=== PATIENT | male | born 1950 | race Caucasian/White ===

== ENCOUNTER 2017-10-14 22:02 | Inpatient (IN) | payer MEDICARE, OTHER ==
[~2017-10-14] VITALS: Ht 180.3 cm; Wt 100.3 kg
[2017-10-14] MEDS ORDERED: SODIUM CHLORIDE FLUSH 10ML SYR IVF ONE (23:00)
[2017-10-14] MEDS ORDERED: OMNIPAQUE 350 MG/ML, 100ML BOTTLE ONE (23:00)
[2017-10-14 23:23] LABS: BASOPHILS # (AUTO) 0.05 x10^3/uL (0-0.1); BASOPHILS % (AUTO) 0 % (0-1); EOSINOPHILS % (AUTO) 1 % (1-7); LYMPHOCYTES # (AUTO) 2.15 x10^3/uL (1-3.4); LYMPHOCYTES % (AUTO) 15 % (22-44); MD NO; MEAN CORPUSCULAR HEMOGLOBIN 32.6 pg (27.5-34.5); MEAN CORPUSCULAR VOLUME 95.9 fL (81-97); MEAN PLATELET VOLUME 7.5 fL (7.4-10.4); MONOCYTES # (AUTO) 1.03 x10^3/uL (0.2-0.8); MONOCYTES % (AUTO) 7 % (2-9); NEUTROPHILS # (AUTO) 11.16 x10^3/uL (1.8-6.8); NEUTROPHILS % (AUTO) 77 % (42-75); PLATELET COUNT 372 x10^3/uL (130-400); RED BLOOD COUNT 4.68 x10^6/uL (4.38-5.82); RED CELL DISTRIBUTION WIDTH 12.6 % (9.4-14.8)
[2017-10-14 23:34] LABS: ALANINE AMINOTRANSFERASE 34 U/L (12-78); ALBUMIN 3.5 g/dL (3.4-5.0); ANION GAP 8 mmol/L (5-15); CALCIUM 9.3 mg/dL (8.5-10.1); CHLORIDE 102 mmol/L (98-107); CREATININE 1.27 mg/dL (0.7-1.3)
[2017-10-14 23:36] LABS: ALKALINE PHOSPHATASE 99 U/L (45-117); BILIRUBIN,TOTAL 0.7 mg/dL (0.2-1.0); TOTAL PROTEIN 8.5 g/dL (6.4-8.2)
[2017-10-15 00:15] LABS: CULTURE INDICATED? NO; MICROSCOPIC AUTO
[2017-10-15] MEDS ORDERED: SODIUM CHLORIDE FLUSH 10ML SYR IVF ONE (00:30)
[2017-10-15] MEDS ORDERED: PIPERACILLIN/TAZO/PMX 3.375GM 50 ML IVPB ONE (00:30)
[2017-10-15] MEDS ORDERED: SODIUM CHLORIDE 0.9% 1,000ML IVBOLUS ONE (00:30)
[2017-10-15 00:47] LABS: CLOSTRIDIUM DIFFICILE ANTIGEN NEGATIVE; CLOSTRIDIUM DIFFICILE TOXIN NEGATIVE (Negative)
[2017-10-15] MEDS ORDERED: PIPERACILLIN/TAZO/PMX 3.375GM 50 ML ONE (00:59)
[2017-10-15 04:13] VITALS: BP 131/75
[2017-10-15] MEDS ORDERED: ACETAMINOPHEN 325 MG TABLET PO PRN (06:00)
[2017-10-15] MEDS ORDERED: ONDANSETRON 2MG/ML, 2ML IVPush PRN (06:00)
[2017-10-15] MEDS ORDERED: CEFOTETAN PMX 1GM/50ML 50 ML IV SCH (06:00)
[2017-10-15] MEDS: NS + 20MEQ KCL 1,000 ML IV SCH ×2 (06:10→15:23)
[2017-10-15] MEDS: morphine SULFATE 10 MG/ML, 1ML IVPush PRN ×5 (06:22→23:53)
[2017-10-15] MEDS: METRONIDAZOLE PMX 500MG/100ML 100 ML IV SCH ×3 (06:56→23:45)
[2017-10-15 07:11] VITALS: BP 121/77
[2017-10-15] MEDS: FAMOTIDINE 20 MG TABLET PO SCH ×2 (08:30→21:08)
[2017-10-15] MEDS ORDERED: DEXTROSE 5% IVPB SCH (11:00)
[2017-10-15] MEDS ORDERED: CEFOTETAN IVPB SCH (11:00)
[2017-10-15 12:25] VITALS: BP 128/81
[2017-10-15 20:30] VITALS: BP 123/76
[2017-10-15] MEDS: CEFOTETAN 2 GM in DEXTROSE 5% 50 ML IVPB SCH (22:39)
[2017-10-16 03:18] VITALS: BP 127/73
[2017-10-16 05:06] LABS: BASOPHILS # (AUTO) 0.02 x10^3/uL (0-0.1); BASOPHILS % (AUTO) 0 % (0-1); EOSINOPHILS # (AUTO) 0.36 x10^3/uL (0-0.4); EOSINOPHILS % (AUTO) 3 % (1-7); LYMPHOCYTES # (AUTO) 2.21 x10^3/uL (1-3.4); LYMPHOCYTES % (AUTO) 21 % (22-44); MD NO; MEAN CORPUSCULAR HEMOGLOBIN 32.7 pg (27.5-34.5); MEAN CORPUSCULAR HGB CONC 34.2 g/dL (33.2-36.2); MEAN CORPUSCULAR VOLUME 95.6 fL (81-97); MEAN PLATELET VOLUME 7.7 fL (7.4-10.4); MONOCYTES # (AUTO) 0.91 x10^3/uL (0.2-0.8); MONOCYTES % (AUTO) 9 % (2-9); NEUTROPHILS # (AUTO) 7.11 x10^3/uL (1.8-6.8); NEUTROPHILS % (AUTO) 67 % (42-75); PLATELET COUNT 300 x10^3/uL (130-400); RED BLOOD COUNT 4.26 x10^6/uL (4.38-5.82); RED CELL DISTRIBUTION WIDTH 12.9 % (9.4-14.8)
[2017-10-16 05:18] LABS: CHLORIDE 108 mmol/L (98-107)
[2017-10-16 05:36] LABS: ANION GAP 10 mmol/L (5-15); CREATININE 1.32 mg/dL (0.7-1.3)
[2017-10-16] MEDS: FAMOTIDINE 20 MG TABLET PO SCH ×2 (07:48→20:43)
[2017-10-16] MEDS: METRONIDAZOLE PMX 500MG/100ML 100 ML IV SCH ×2 (07:48→16:00)
[2017-10-16] MEDS: morphine SULFATE 10 MG/ML, 1ML IVPush PRN ×3 (07:54→22:21)
[2017-10-16 09:04] VITALS: BP 105/58
[2017-10-16] MEDS: CEFOTETAN 2 GM in DEXTROSE 5% 50 ML IVPB SCH ×2 (11:37→23:21)
[2017-10-16 13:56] VITALS: BP 135/73
[2017-10-16 21:58] VITALS: BP 138/78
[2017-10-17] MEDS: METRONIDAZOLE PMX 500MG/100ML 100 ML IV SCH ×3 (00:33→16:50)
[2017-10-17 03:36] VITALS: BP 121/76
[2017-10-17 05:55] LABS: BASOPHILS # (AUTO) 0.03 x10^3/uL (0-0.1); BASOPHILS % (AUTO) 0 % (0-1); EOSINOPHILS # (AUTO) 0.36 x10^3/uL (0-0.4); EOSINOPHILS % (AUTO) 4 % (1-7); LYMPHOCYTES # (AUTO) 1.86 x10^3/uL (1-3.4); LYMPHOCYTES % (AUTO) 19 % (22-44); MD NO; MEAN CORPUSCULAR HEMOGLOBIN 32.7 pg (27.5-34.5); MEAN CORPUSCULAR HGB CONC 34.3 g/dL (33.2-36.2); MEAN CORPUSCULAR VOLUME 95.2 fL (81-97); MEAN PLATELET VOLUME 7.4 fL (7.4-10.4); MONOCYTES # (AUTO) 0.95 x10^3/uL (0.2-0.8); MONOCYTES % (AUTO) 10 % (2-9); NEUTROPHILS % (AUTO) 67 % (42-75); PLATELET COUNT 304 x10^3/uL (130-400); RED BLOOD COUNT 4.13 x10^6/uL (4.38-5.82); RED CELL DISTRIBUTION WIDTH 12.5 % (9.4-14.8)
[2017-10-17 06:11] LABS: ANION GAP 8 mmol/L (5-15); CHLORIDE 105 mmol/L (98-107)
[2017-10-17 06:13] LABS: CREATININE 1.33 mg/dL (0.7-1.3)
[2017-10-17 07:59] VITALS: BP 119/74
[2017-10-17] MEDS: FAMOTIDINE 20 MG TABLET PO SCH ×2 (08:21→22:52)
[2017-10-17] MEDS: morphine SULFATE 10 MG/ML, 1ML IVPush PRN (08:21)
[2017-10-17] MEDS: CEFOTETAN 2 GM in DEXTROSE 5% 50 ML IVPB SCH ×2 (11:44→23:56)
[2017-10-17 12:50] VITALS: BP 131/81
[2017-10-17] MEDS ORDERED: OXYcodone IR 5MG TABLET ONE (13:32)
[2017-10-17] MEDS ORDERED: OXYcodone 5 MG/5 ML ORAL.SOL UDC ONE (13:40)
[2017-10-17] MEDS: OXYcodone 5 MG/5 ML ORAL.SOL UDC PO PRN ×3 (13:48→22:51)
[2017-10-17 20:00] VITALS: BP 122/82
[2017-10-18] MEDS: METRONIDAZOLE PMX 500MG/100ML 100 ML IV SCH ×3 (00:59→16:28)
[2017-10-18 02:00] VITALS: BP 156/96
[2017-10-18] MEDS: morphine SULFATE 10 MG/ML, 1ML IVPush PRN ×2 (02:33→08:57)
[2017-10-18 06:45] VITALS: BP 114/74
[2017-10-18] MEDS: FAMOTIDINE 20 MG TABLET PO SCH ×2 (08:48→22:20)
[2017-10-18] MEDS ORDERED: morphine SULFATE 10 MG/ML, 1ML IVPush PRN (11:00)
[2017-10-18] MEDS: CEFOTETAN 2 GM in DEXTROSE 5% 50 ML IVPB SCH (11:51)
[2017-10-18] MEDS ORDERED: MORPHINE SULFATE 4 MG/ML, 1ML IVPush PRN (12:00)
[2017-10-18] MEDS ORDERED: KETOROLAC 30 MG/1 ML IVPush PRN (12:00)
[2017-10-18 16:33] VITALS: BP 118/76
[2017-10-18 19:54] VITALS: BP 112/80
[2017-10-18] MEDS: CEFOTETAN PMX 2GM/50ML 50 ML IVPB SCH (23:35)
[2017-10-19] MEDS: METRONIDAZOLE PMX 500MG/100ML 100 ML IV SCH ×3 (01:21→17:10)
[2017-10-19 01:24] VITALS: BP 125/71
[2017-10-19 05:50] LABS: BASOPHILS # (AUTO) 0.03 x10^3/uL (0-0.1); BASOPHILS % (AUTO) 0 % (0-1); EOSINOPHILS # (AUTO) 0.43 x10^3/uL (0-0.4); EOSINOPHILS % (AUTO) 5 % (1-7); LYMPHOCYTES # (AUTO) 1.77 x10^3/uL (1-3.4); LYMPHOCYTES % (AUTO) 20 % (22-44); MD NO; MEAN CORPUSCULAR HEMOGLOBIN 32.3 pg (27.5-34.5); MEAN CORPUSCULAR HGB CONC 33.9 g/dL (33.2-36.2); MEAN CORPUSCULAR VOLUME 95.3 fL (81-97); MEAN PLATELET VOLUME 7.5 fL (7.4-10.4); MONOCYTES # (AUTO) 0.83 x10^3/uL (0.2-0.8); MONOCYTES % (AUTO) 10 % (2-9); NEUTROPHILS # (AUTO) 5.63 x10^3/uL (1.8-6.8); NEUTROPHILS % (AUTO) 65 % (42-75); PLATELET COUNT 334 x10^3/uL (130-400); RED BLOOD COUNT 4.12 x10^6/uL (4.38-5.82); RED CELL DISTRIBUTION WIDTH 12.7 % (9.4-14.8)
[2017-10-19 06:09] LABS: CHLORIDE 105 mmol/L (98-107)
[2017-10-19 07:04] VITALS: BP 128/81
[2017-10-19 07:14] LABS: CALCIUM 8.8 mg/dL (8.5-10.1); CREATININE 1.41 mg/dL (0.7-1.3)
[2017-10-19 07:53] LABS: ANION GAP 6 mmol/L (5-15)
[2017-10-19] MEDS: FAMOTIDINE 20 MG TABLET PO SCH ×2 (09:01→20:33)
[2017-10-19] MEDS ORDERED: OXYcodone IR 5MG TABLET PO PRN (09:30)
[2017-10-19] MEDS: CEFOTETAN PMX 2GM/50ML 50 ML IVPB SCH ×2 (11:02→23:09)
[2017-10-19] MEDS: POTASSIUM CHLORIDE 20 MEQ in SODIUM CHLORIDE 0.45% 1,000 ML IV SCH ×2 (11:03→23:09)
[2017-10-19 13:28] VITALS: BP 120/74
[2017-10-19 20:28] VITALS: BP 128/77
[2017-10-20] MEDS: METRONIDAZOLE PMX 500MG/100ML 100 ML IV SCH (01:33)
[2017-10-20 02:03] VITALS: BP 140/74
[2017-10-20 05:23] LABS: ANION GAP 7 mmol/L (5-15); CALCIUM 8.8 mg/dL (8.5-10.1); CHLORIDE 107 mmol/L (98-107)
[2017-10-20 05:24] LABS: CREATININE 1.25 mg/dL (0.7-1.3)
[2017-10-20] MEDS ORDERED: CIPROFLOXACIN 250 MG TABLET ONE (09:00)
[2017-10-20] MEDS ORDERED: CIPROFLOXACIN 750 MG TABLET PO SCH (09:00)
[2017-10-20] MEDS ORDERED: metroNIDAZOLE 500 MG TABLET PO SCH (09:00)
[2017-10-20] MEDS ORDERED: CIPROFLOXACIN 500 MG TABLET ONE (09:01)
[2017-10-20] MEDS: FAMOTIDINE 20 MG TABLET PO SCH (09:04)
[2017-10-20] MEDS: POTASSIUM CHLORIDE 20 MEQ in SODIUM CHLORIDE 0.45% 1,000 ML IV SCH (09:06)
[2017-10-20] MEDS ORDERED: METR500T PO (09:11)
[2017-10-20] MEDS ORDERED: CIPR750T PO (09:11)
[2017-10-20] MEDS ORDERED: ONDA4TAB10 PO (09:11)
[2017-10-20] MEDS ORDERED: OXYC5CAP2 PO (09:11)
[2017-10-20 12:10] VITALS: BP 133/69
== END 2017-10-20 12:30 | disposition home or self-care (01) | DRG 392 ==
LOC: ED 23:59 → EDIP 10-15 00:27 → 4NOR 10-15 01:19
PROVIDERS: ADMIT Family Medicine; ATTEND Family Medicine
DX: K57.20 Diverticulitis of large intestine with perforation and abscess without bleeding (principal); F12.90 Cannabis use, unspecified, uncomplicated; G47.33 Obstructive sleep apnea (adult) (pediatric); F17.290 Nicotine dependence, other tobacco product, uncomplicated; K42.9 Umbilical hernia without obstruction or gangrene; Z96.611 Presence of right artificial shoulder joint; R73.9 Hyperglycemia, unspecified; D72.829 Elevated white blood cell count, unspecified
CPT/HCPCS: 36415; 74177; 80048; 80053; 81001; 83690; 83735; 85025; 87040; 87324; 89055; 99285; J2405; J2543; J3480; Q9967; J2270; J7030; S0074

== ENCOUNTER → 2017-10-29 | Outpatient (CLI) | payer MEDICARE, OTHER ==
[~2017-10-29] MED LIST: CIPR750T PO; METR500T PO; OMNIPAQUE 350 MG/ML, 100ML BOTTLE ONE; ONDA4TAB10 PO; OXYC5CAP2 PO
== END | disposition home or self-care (01) ==
LOC: CFH 13:35
PROVIDERS: ATTEND Surgery
DX: K57.32 Diverticulitis of large intestine without perforation or abscess without bleeding (principal); K42.9 Umbilical hernia without obstruction or gangrene
CPT/HCPCS: 74177; Q9967

== ENCOUNTER → 2017-12-26 | Outpatient (CLI) | payer OTHER | END | disposition home or self-care (01) | LOC: CFH 12:48 | PROVIDERS: ATTEND Surgery | DX: K57.30 Diverticulosis of large intestine without perforation or abscess without bleeding (principal); K57.32 Diverticulitis of large intestine without perforation or abscess without bleeding | CPT/HCPCS: 74177; Q9967 ==

== ENCOUNTER → 2018-01-11 | Outpatient (CLI) | payer OTHER | END | disposition home or self-care (01) | LOC: CFH 14:13 | PROVIDERS: ATTEND Internal Medicine | DX: K57.32 Diverticulitis of large intestine without perforation or abscess without bleeding (principal); N28.1 Cyst of kidney, acquired; K62.5 Hemorrhage of anus and rectum; Z87.891 Personal history of nicotine dependence | CPT/HCPCS: 74177; Q9967 ==

== ENCOUNTER → 2018-01-30 | Outpatient (CLI) | payer OTHER ==
[~2018-01-30] MED LIST changes: +LEVO1CAP3 PO; +MULT-224 PO; +MV-M1TAB29 PO; -OMNIPAQUE 350 MG/ML, 100ML BOTTLE ONE; +VIT1TABL32 PO
== END | disposition home or self-care (01) ==
LOC: STAR 11:21
PROVIDERS: ATTEND Surgery
DX: Z01.818 Encounter for other preprocedural examination (principal); K57.30 Diverticulosis of large intestine without perforation or abscess without bleeding
CPT/HCPCS: 93005

== ENCOUNTER 2018-03-15 11:28 | Inpatient (IN) | payer MEDICARE, OTHER ==
[~2018-03-15] VITALS: Ht 180.3 cm; Wt 77.8 kg
[2018-03-15] MEDS ORDERED: LACTATED RINGERS 1,000 ML IV SCH (11:42)
[2018-03-15] MEDS ORDERED: PROCHLORPERAZINE 5 MG/ML, 2ML IV PRN (12:00)
[2018-03-15] MEDS ORDERED: LABETALOL 5MG/ML, 20ML IV PRN (12:00)
[2018-03-15] MEDS ORDERED: DIPHENHYDRAMINE 50 MG/ML, 1ML IVPush PRN (12:00)
[2018-03-15] MEDS ORDERED: hydrALAzine 20 MG/ML, 1ML IV PRN (12:00)
[2018-03-15] MEDS ORDERED: MEPERIDINE/PF 25MG/0.5ML IVPush PRN (12:00)
[2018-03-15] MEDS ORDERED: GABAPENTIN 300 MG CAPSULE PO ONE (12:00)
[2018-03-15] MEDS ORDERED: ACETAMINOPHEN 500 MG TABLET PO ONE (12:00)
[2018-03-15] MEDS ORDERED: EPINEPHRINE 1 MG/ML, 1ML ONE (12:50)
[2018-03-15] MEDS ORDERED: BUPIVACAINE/PF 0.5% ONE (12:50)
[2018-03-15] MEDS ORDERED: FENTANYL PF 250 MCG/5ML ONE (13:09)
[2018-03-15] MEDS ORDERED: MIDAZOLAM 1 MG/ML, 2ML ONE (13:09)
[2018-03-15] MEDS ORDERED: INDOCYANINE GREEN 25 MG VIAL ONE (14:22)
[2018-03-15] MEDS ORDERED: FENTANYL PF 100 MCG/2ML ONE ×3 (17:12→18:36)
[2018-03-15] MEDS ORDERED: PROPOFOL 10 MG/ML, 20ML ONE (17:35)
[2018-03-15] MEDS ORDERED: ONDANSETRON 2MG/ML, 2ML ONE (17:35)
[2018-03-15] MEDS ORDERED: DEXAMETHASONE 4 MG/ML, 1ML ONE (17:35)
[2018-03-15] MEDS ORDERED: CEFAZOLIN 1,000 MG ONE (17:35)
[2018-03-15] MEDS ORDERED: SUCCINYLCHOLINE 20 MG/ML, 10ML ONE (17:35)
[2018-03-15] MEDS ORDERED: ROCURONIUM 10MG/ML,5ML ONE (17:35)
[2018-03-15] MEDS ORDERED: GLYCOPYRROLATE 0.2MG/1ML, 5ML ONE (17:35)
[2018-03-15] MEDS ORDERED: NEOSTIGMINE 1 MG/ML, 10ML ONE (17:35)
[2018-03-15] MEDS ORDERED: ACETAMINOPHEN 100 ML IVPB SCH (18:00)
[2018-03-15] MEDS ORDERED: DIPHENHYDRAMINE 25 MG CAPSULE PO PRN (18:00)
[2018-03-15] MEDS ORDERED: SCOPOLAMINE PATCH, 1.5MG PATCH.TD72 TD PRN (18:00)
[2018-03-15] MEDS ORDERED: ONDANSETRON 2MG/ML, 2ML IVPush PRN (18:00)
[2018-03-15] MEDS ORDERED: CALCIUM CARBONATE 500 MG TAB.CHEW PO PRN (18:00)
[2018-03-15] MEDS: LABETALOL 5MG/ML, 20ML IVPush SCH (18:00)
[2018-03-15] MEDS ORDERED: HYDROmorphone 2 MG/ML, 1ML ONE (18:12)
[2018-03-15] MEDS ORDERED: OXYcodone 5 MG/5 ML ORAL.SOL UDC ONE (18:12)
[2018-03-15] MEDS: FENTANYL PF 100 MCG/2ML IV PRN ×3 (18:14→18:37)
[2018-03-15] MEDS: HYDROmorphone 1 MG/ML, 1ML IV PRN ×2 (18:17→18:32)
[2018-03-15] MEDS ORDERED: OXYcodone 5 MG/5 ML ORAL.SOL UDC PO PRN (18:30)
[2018-03-15] MEDS ORDERED: PROCHLORPERAZINE 5 MG/ML, 2ML ONE (19:01)
[2018-03-15] MEDS: PIPERACILLIN/TAZO/PMX 3.375GM 50 ML IVPB SCH (21:30)
[2018-03-15] MEDS ORDERED: ACETAMINOPHEN 500 MG TABLET PO PRN (21:30)
[2018-03-15] MEDS: D5%-0.45NACL+KCL 20MEQ 1,000 ML IV SCH (21:30)
[2018-03-16 00:14] VITALS: BP 137/71
[2018-03-16] MEDS: LABETALOL 5MG/ML, 20ML IVPush SCH ×3 (02:00→17:40)
[2018-03-16] MEDS: MORPHINE SULFATE 4 MG/ML, 1ML IVPush PRN ×2 (02:07→05:58)
[2018-03-16] MEDS: D5%-0.45NACL+KCL 20MEQ 1,000 ML IV SCH ×3 (03:52→23:52)
[2018-03-16] MEDS: PIPERACILLIN/TAZO/PMX 3.375GM 50 ML IVPB SCH ×4 (04:19→21:47)
[2018-03-16 05:46] LABS: BASOPHILS # (AUTO) 0.03 x10^3/uL (0-0.1); BASOPHILS % (AUTO) 0 % (0-1); EOSINOPHILS % (AUTO) 0 % (1-7); LYMPHOCYTES # (AUTO) 1.34 x10^3/uL (1-3.4); LYMPHOCYTES % (AUTO) 11 % (22-44); MD NO; MEAN CORPUSCULAR HEMOGLOBIN 32.6 pg (27.5-34.5); MEAN CORPUSCULAR VOLUME 95.7 fL (81-97); MEAN PLATELET VOLUME 8.1 fL (7.4-10.4); MONOCYTES # (AUTO) 0.79 x10^3/uL (0.2-0.8); MONOCYTES % (AUTO) 6 % (2-9); NEUTROPHILS # (AUTO) 10.54 x10^3/uL (1.8-6.8); NEUTROPHILS % (AUTO) 83 % (42-75); PLATELET COUNT 228 x10^3/uL (130-400); RED BLOOD COUNT 4.33 x10^6/uL (4.38-5.82); RED CELL DISTRIBUTION WIDTH 12.8 % (9.4-14.8)
[2018-03-16 05:51] LABS: ANION GAP 10 mmol/L (5-15); CALCIUM 8.1 mg/dL (8.5-10.1); CHLORIDE 110 mmol/L (98-107); CREATININE 1.24 mg/dL (0.7-1.3)
[2018-03-16 07:16] VITALS: BP 117/59
[2018-03-16] MEDS: OXYcodone IR 5MG TABLET PO PRN ×3 (08:27→21:48)
[2018-03-16] MEDS: ENOXAPARIN 30 MG/0.3 ML SQ SCH ×2 (10:57→21:47)
[2018-03-16 14:12] VITALS: BP 130/80
[2018-03-16 19:55] VITALS: BP 135/78
[2018-03-17 01:11] VITALS: BP 129/73
[2018-03-17] MEDS: OXYcodone IR 5MG TABLET PO PRN ×4 (01:17→22:59)
[2018-03-17] MEDS: LABETALOL 5MG/ML, 20ML IVPush SCH ×3 (02:00→17:01)
[2018-03-17] MEDS: PIPERACILLIN/TAZO/PMX 3.375GM 50 ML IVPB SCH ×4 (04:17→21:56)
[2018-03-17 07:10] VITALS: BP 148/79
[2018-03-17] MEDS: D5%-0.45NACL+KCL 20MEQ 1,000 ML IV SCH ×2 (10:44→19:52)
[2018-03-17] MEDS: ENOXAPARIN 30 MG/0.3 ML SQ SCH ×2 (10:57→23:00)
[2018-03-17 12:44] VITALS: BP 139/77
[2018-03-17 20:37] VITALS: BP_SYST 154; BP_SYST 160; BP_DIAS 81
[2018-03-18] MEDS: LABETALOL 5MG/ML, 20ML IVPush SCH ×2 (00:56→10:11)
[2018-03-18 02:33] VITALS: BP 141/79
[2018-03-18] MEDS: PIPERACILLIN/TAZO/PMX 3.375GM 50 ML IVPB SCH ×2 (03:57→10:12)
[2018-03-18] MEDS: D5%-0.45NACL+KCL 20MEQ 1,000 ML IV SCH (04:56)
[2018-03-18 07:54] VITALS: BP 142/71
[2018-03-18] MEDS ORDERED: OXYC-302 PO (09:15)
[2018-03-18] MEDS ORDERED: AMOX1TAB64 PO (09:16)
[2018-03-18] MEDS: ENOXAPARIN 30 MG/0.3 ML SQ SCH (10:11)
[2018-03-18 12:30] VITALS: BP 134/79
== END 2018-03-18 13:50 | disposition home or self-care (01) | DRG 331 ==
LOC: ORIP 11:28 → 4NOR 20:20 → DCLOUNGE 03-18 13:28
PROVIDERS: ADMIT Surgery; ATTEND Surgery
PROC: 8E0W4CZ Robotic Assisted Procedure of Trunk Region, Percutaneous Endoscopic Approach (ICD-10-PCS; 2018-03-15)
PROC: 0DJD8ZZ Inspection of Lower Intestinal Tract, Via Natural or Artificial Opening Endoscopic (ICD-10-PCS; 2018-03-15)
PROC: 0DTN4ZZ Resection of Sigmoid Colon, Percutaneous Endoscopic Approach (ICD-10-PCS; principal; 2018-03-15 13:30)
PROC: 5A09357 Assistance with Respiratory Ventilation, Less than 24 Consecutive Hours, Continuous Positive Airway Pressure (ICD-10-PCS; 2018-03-17)
PROC: 5A09357 Assistance with Respiratory Ventilation, Less than 24 Consecutive Hours, Continuous Positive Airway Pressure (ICD-10-PCS; 2018-03-18)
DX: K57.32 Diverticulitis of large intestine without perforation or abscess without bleeding (principal); K66.0 Peritoneal adhesions (postprocedural) (postinfection); G47.33 Obstructive sleep apnea (adult) (pediatric); Z96.611 Presence of right artificial shoulder joint; Z88.5 Allergy status to narcotic agent; Z87.891 Personal history of nicotine dependence
CPT/HCPCS: 36415; 80048; 85025; 88307; G0378; J0171; J0690; J1100; J1170; J1650; J2250; J2405; J2543; J2704; J2710; J3010; J3490; J0330; J0780; J3480; J7120

== ENCOUNTER 2020-12-16 14:12 | Emergency (ER) | payer MEDICARE, OTHER ==
[~2020-12-16] VITALS: Ht 180.3 cm; Wt 83.6 kg
[~2020-12-16 14:12] MED LIST changes: +AMOX1TAB64 PO; -MULT-224 PO; +MULT-642 PO; +OXYC1TAB14 PO
--- NOTE | 2020-12-16 14:41 | NUR ---
PATIENT WALKED BACK FROM LOBBY WITH CHIEF C/O LEFT SIDED ABD PAIN X4 DAYS. PATIENT DENIES N/V/D, NO FEVER, NO PAIN WITH URINATION. PATIENT STATES "I THINK IT'S DIVERTICULITIS." [facility], CONNECTED TO MONITOR, VSS, CALL LIGHT WITHIN REACH.
--- NOTE | 2020-12-16 15:51 | NUR ---
PATIENT AMBULATED TO BATHROOM WITH STEADY GAIT FOR URINE SAMPLE.
[2020-12-16 16:08] LABS: ALANINE AMINOTRANSFERASE 32 U/L (12-78); ALBUMIN 3.7 g/dL (3.4-5.0); ANION GAP 9 mmol/L (5-15); CALCIUM 9.1 mg/dL (8.5-10.1); CHLORIDE 108 mmol/L (98-107); CREATININE 1.12 mg/dL (0.7-1.3)
[2020-12-16 16:09] LABS: BASOPHILS % (AUTO) 0 % (0-1); EOSINOPHILS % (AUTO) 1 % (1-7); LYMPHOCYTES % (AUTO) 32 % (22-44); MEAN CORPUSCULAR HEMOGLOBIN 33.7 pg (27.5-34.5); MEAN CORPUSCULAR HGB CONC 35.4 g/dL (33.2-36.2); MEAN PLATELET VOLUME 7.8 fL (7.4-10.4); MONOCYTES % (AUTO) 8 % (2-9); NEUTROPHILS % (AUTO) 59 % (42-75); PLATELET COUNT 293 x10^3/uL (130-400); RED BLOOD COUNT 4.46 x10^6/uL (4.38-5.82); RED CELL DISTRIBUTION WIDTH 12.4 % (9.4-14.8)
[2020-12-16 16:10] LABS: ALKALINE PHOSPHATASE 85 U/L (45-117); BILIRUBIN,TOTAL 0.7 mg/dL (0.2-1.0); TOTAL PROTEIN 7.9 g/dL (6.4-8.2)
--- NOTE | 2020-12-16 16:10 | NUR ---
PATIENT BACK TO ROOM, URINE COLLECTED AND SENT TO LAB.
[2020-12-16 16:23] LABS: MICROSCOPIC NOT IND
--- NOTE | 2020-12-16 16:56 | NUR ---
PATIENT TO CT SCAN.
[2020-12-16] MEDS ORDERED: OMNIPAQUE 350 MG/ML, 100ML BOTTLE ONE (17:16)
--- NOTE | 2020-12-16 17:47 | NUR ---
PATIENT RESTING IN [facility], CONNECTED TO MONITOR, VSS, CALL LIGHT WITHIN REACH. PATIENT UP FOR RECHECK.
[2020-12-16 18:04] VITALS: BP 129/67
--- NOTE | 2020-12-16 18:33 | NUR ---
Patient given discharge instructions and prescription and they have confirmed that they understand the instructions. Patient ambulatory with steady gait. NAD, all questions answered appropriately, denies additional needs at this time. No personal belongings left in room after discharge.
== END 2020-12-16 18:34 | disposition home or self-care (01) ==
LOC: ED 14:42
DX: K57.30 Diverticulosis of large intestine without perforation or abscess without bleeding (principal)
CPT/HCPCS: 36415; 74177; 80053; 81003; 85025; 99285; Q9967